=== PATIENT | female | born 1955 | race African-American/Black ===

== ENCOUNTER 2018-04-09 11:21 | Inpatient (IN) ==
[2018-04-09] MEDS ORDERED: GLUCAGON 1 MG VIAL IM PRN (13:51)
[2018-04-09] MEDS ORDERED: ONDANSETRON 4 MG/2 ML VIAL IV PRN (13:51)
[2018-04-09] MEDS ORDERED: ACETAMINOPHEN 325 MG TABLET PO PRN (13:51)
[2018-04-09] MEDS ORDERED: DEXTROSE 50% 25 GM/50 ML VIAL IV PRN (13:51)
[2018-04-09] MEDS ORDERED: DEXTROSE 50% 25 GM/50 ML VIAL IV ONE (15:18)
[2018-04-09] MEDS: DEXTROSE 5% NACL 0.45% 1,000 ML IV SCH (15:40)
[2018-04-09] MEDS: INSULIN REGULAR 100 UNIT/ML SUBCUT SCH ×2 (17:09→22:56)
[2018-04-09 17:33] LABS: Basophils % 0.3 % (0.0-0.8); Eosinophils # 0.4 10*3/uL (0.0-0.87); Eosinophils % 2.5 % (0.00-10.9); Hematocrit 30.5 VOL% (35.7-47.0); Hemoglobin 9.6 GM/DL (12.0-16.0); Immature Granulocytes % 0.8 %; Immature Granulocytes Absolute 0.12 #; Lymphocytes # 1.3 10*3/uL (1.4-4.0); Lymphocytes % 8.5 % (21.3-54.2); Mean Corpuscular HGB Conc 31.5 GM/DL (32-36); Mean Corpuscular Hemoglobin 28 PG (27-34); Mean Corpuscular Volume 89.4 FL (87-102); Mean Platelet Volume 10.3 FL (9.6-12.0); Monocytes # 0.7 10*3/uL (0.11-0.8); Monocytes % 4.8 % (1.7-12.7); Neutrophils # 12.5 10*3/uL (1.4-7.4); Neutrophils % 83.1 % (38.7-73.9); Platelet Count 449 T/CUMM (130-400); Red Blood Count 3.41 MC/CUMM (3.8-5.5); Red Cell Distribution Width 13.3 % (9.3-17.3); White Blood Count 15.1 T/CUMM (4-12)
[2018-04-09] MEDS: MEROPENEM 1,000 MG in SODIUM CHLORIDE 0.9% 100 ML IV SCH (17:40)
[2018-04-09 18:00] LABS: Calcium 8.1 MG/DL (8.5-10.1); Osmolality,Calculated 271.7 MOS/KG (273-304); Potassium 3.6 MMOL/L (3.5-5.1)
[2018-04-09] MEDS ORDERED: VANCOMYCIN INJ 2,000 MG in SODIUM CHLORIDE 0.9% 500 ML IV ONE (18:00)
[2018-04-09] MEDS: VANCOMYCIN INJ 1,500 MG in SODIUM CHLORIDE 0.9% 500 ML IV SCH (22:22)
[2018-04-10] MEDS: MEROPENEM 1,000 MG in SODIUM CHLORIDE 0.9% 100 ML IV SCH ×2 (02:35→08:26)
[2018-04-10 05:11] LABS: Basophils # 0.1 10*3/uL (0.0-0.2); Basophils % 0.4 % (0.0-0.8); Eosinophils # 0.4 10*3/uL (0.0-0.87); Eosinophils % 2.8 % (0.00-10.9); Hemoglobin 8.5 GM/DL (12.0-16.0); Immature Granulocytes % 0.8 %; Lymphocytes # 1.6 10*3/uL (1.4-4.0); Lymphocytes % 12.5 % (21.3-54.2); Mean Corpuscular HGB Conc 30.4 GM/DL (32-36); Mean Corpuscular Hemoglobin 28 PG (27-34); Mean Corpuscular Volume 91.8 FL (87-102); Mean Platelet Volume 10.6 FL (9.6-12.0); Monocytes # 0.7 10*3/uL (0.11-0.8); Monocytes % 5.6 % (1.7-12.7); Neutrophils # 10.2 10*3/uL (1.4-7.4); Neutrophils % 77.9 % (38.7-73.9); Platelet Count 394 T/CUMM (130-400); Red Blood Count 3.05 MC/CUMM (3.8-5.5); Red Cell Distribution Width 13.5 % (9.3-17.3); White Blood Count 13.1 T/CUMM (4-12)
[2018-04-10 05:20] LABS: Calcium 7.9 MG/DL (8.5-10.1); Osmolality,Calculated 273.5 MOS/KG (273-304); Potassium 3.7 MMOL/L (3.5-5.1)
[2018-04-10 07:33] LABS: INR 1.1; PT Patient Result 11.4 SECS
[2018-04-10] MEDS: DEXTROSE 5% NACL 0.45% 1,000 ML IV SCH ×3 (08:19→14:04)
[2018-04-10] MEDS: MORPHINE 4 MG/1 ML VIAL IV PRN ×2 (08:23→13:42)
[2018-04-10] MEDS ORDERED: HEPARIN/NACL 0.9% 2 UNITS/ML 2,000 ML IV ONE (08:45)
[2018-04-10] MEDS ORDERED: MIDAZOLAM 2 MG/2 ML VIAL IV ONE (08:53)
[2018-04-10] MEDS ORDERED: DIAZEPAM 5 MG TABLET PO ONE (08:53)
[2018-04-10] MEDS ORDERED: fentaNYL 100 MCG/2 ML VIAL IV ONE (08:53)
[2018-04-10] MEDS ORDERED: PANTOPRAZOLE 40 MG TABLET PO SCH (09:00)
[2018-04-10] MEDS ORDERED: fentaNYL 100 MCG/2 ML VIAL ONE (09:39)
[2018-04-10] MEDS ORDERED: MIDAZOLAM 2 MG/2 ML VIAL ONE (09:39)
[2018-04-10] MEDS ORDERED: HEPARIN 5,000 UNIT/1 ML VIAL ONE (10:22)
[2018-04-10] MEDS ORDERED: HEPARIN 5,000 UNIT/1 ML VIAL IV ONE ×2 (10:23→10:24)
[2018-04-10] MEDS: INSULIN REGULAR 100 UNIT/ML SUBCUT SCH ×2 (10:52→14:04)
[2018-04-10] MEDS ORDERED: CLOPIDOGREL 75 MG TABLET PO SCH (11:00)
[2018-04-10] MEDS: VANCOMYCIN INJ 1,500 MG in SODIUM CHLORIDE 0.9% 500 ML IV SCH (12:26)
[2018-04-10 16:23] VITALS: BP 140/74
[2018-04-11] MEDS ORDERED: ENOXAPARIN 40 MG/0.4 ML SYRINGE SUBCUT SCH (09:00)
== END 2018-04-10 16:49 | disposition hospice, home (50) | DRG 253 ==
LOC: N.5E 14:44
PROVIDERS: ADMIT Surgery; ATTEND Surgery